=== PATIENT | male | born 1965 | race Caucasian/White ===

== ENCOUNTER 2024-03-20 10:42 | Emergency (ER) | payer OTHER ==
[~2024-03-20] VITALS: Ht 182.9 cm; Wt 57.6 kg
[2024-03-20 11:05] VITALS: BP_SYST 122; PULSE 60; RESP 18; TEMP 98.3; O2SAT 98
[2024-03-20] MEDS ORDERED: TRAM50TA2 PO (13:27)
[2024-03-20] MEDS ORDERED: IBUP-1971 PO (13:27)
[2024-03-20] MEDS: KETOROLAC TROMETHAMINE 60 MG/2 ML VIAL IM ONE (13:29)
[2024-03-20 13:37] VITALS: BP_SYST 131; PULSE 63; RESP 18; TEMP 98.5; O2SAT 95
== END 2024-03-20 11:47 | disposition home or self-care (01) ==
LOC: SED 10:42
DX: S43.491A Other sprain of right shoulder joint, initial encounter (principal); S09.8XXA Other specified injuries of head, initial encounter; Y08.89XA Assault by other specified means, initial encounter; Y93.89 Activity, other specified; Y92.89 Other specified places as the place of occurrence of the external cause; Y99.8 Other external cause status
CPT/HCPCS: 99285; 70450; 73030; 96372; J1885

== ENCOUNTER 2024-03-25 08:08 | Emergency (ER) | payer OTHER ==
[~2024-03-25] VITALS: Ht 182.9 cm; Wt 59.0 kg
[~2024-03-25 08:08] MED LIST: IBUP-1971 PO; TRAM50TA2 PO
[2024-03-25 08:09] VITALS: BP_SYST 140; PULSE 43; RESP 18; TEMP 95.5; O2SAT 96
[2024-03-25 08:31] LABS: BASOPHILS % (AUTO) 0.3 % (0.0-2.0); EOSINOPHILS # (AUTO) 0.1 K/uL (0.0-0.4); EOSINOPHILS % (AUTO) 1.1 % (0.0-4.0); HEMATOCRIT 39.7 % (36-54); HEMOGLOBIN 13.4 g/dL (14.0-18.0); LYMPHOCYTES # (AUTO) 1.1 K/uL (1.0-5.5); LYMPHOCYTES % (AUTO) 12.1 % (20.5-51.5); MEAN CORPUSCULAR HEMOGLOBIN 32 pg (27-31); MEAN CORPUSCULAR HGB CONC 34 % (32-36); MEAN CORPUSCULAR VOLUME 96 fL (79.0-98.0); MONOCYTES # (AUTO) 0.6 K/uL (0.0-1.0); MONOCYTES % (AUTO) 6.2 % (1.7-9.3); NEUTROPHILS # (AUTO) 7.4 K/uL (1.8-7.7); NEUTROPHILS % (AUTO) 80.3 % (40.0-70.0); PLATELET COUNT (AUTO) 232 K/uL (130-430); RED BLOOD CELL COUNT(AUTO) 4.14 MIL/uL (4.2-6.2); RED CELL DISTRIBUTION WIDTH 14.6 % (9.0-15.0); WHITE BLOOD COUNT (AUTO) 9.2 K/uL (4.8-10.8)
[2024-03-25] MEDS: MECLIZINE HCL 25 MG TABLET (ANITVERT) PO ONE (08:32)
[2024-03-25 08:51] LABS: ALANINE AMINOTRANSFERASE 18 U/L (12-78); ALBUMIN 3.7 g/dL (3.4-4.8); ANION GAP 8 (5-15); ASPARTATE AMINOTRANSFERASE 17 U/L (10-37); BILIRUBIN,DIRECT 0.2 mg/dL (0.0-0.3); CALCIUM 8.7 mg/dL (8.4-11.0); CARBON DIOXIDE 29 mmol/L (23-29); CHLORIDE 97 mmol/L (98-107); CREATINE KINASE, TOTAL 125 U/L (39-308); CREATININE 0.82 mg/dL (0.55-1.30); GFR AFRICAN AMERICAN 124 mL/min (>90); GLUCOSE 137 mg/dL (74-106); POTASSIUM 3.9 mmol/L (3.5-5.1); SODIUM SERUM 134 mmol/L (136-145); TOTAL BILIRUBIN 0.6 mg/dL (0.0-1.0); TOTAL PROTEIN, SERUM 6.5 g/dL (6.4-8.3); UREA NITROGEN, BLOOD 15 mg/dL (8-21)
[2024-03-25 08:53] LABS: GFR NON AFRICAN-AMERICAN 102 mL/min (>90)
[2024-03-25 09:00] VITALS: TEMP 98
[2024-03-25 09:00] LABS: INR 1.1 (0.80-1.20); PROTHROMBIN TIME 11.1 SECS (9.5-12.5)
[2024-03-25] MEDS: HALOPERIDOL LACTATE 5 MG/ML VIAL IM ONE (09:06)
[2024-03-25 09:59] VITALS: BP_SYST 106; PULSE 44; RESP 18; O2SAT 98
[2024-03-25] MEDS ORDERED: METO-290 PO (10:36)
== END 2024-03-25 11:10 | disposition home or self-care (01) ==
LOC: SED 08:08
DX: K52.89 Other specified noninfective gastroenteritis and colitis (principal); R11.15 Cyclical vomiting syndrome unrelated to migraine; R42 Dizziness and giddiness; R00.1 Bradycardia, unspecified; Z79.899 Other long term (current) drug therapy
CPT/HCPCS: 99284; 80076; 80048; 82550; 85025; 85610; 85730; 84484; 36415; 93005; 96372; 83605; J1630; J8597